=== PATIENT | female | born 1970 | race Caucasian/White ===

== ENCOUNTER 2018-05-18 11:34 | Day surgery (SDC) | payer OTHER ==
[~2018-05-18] VITALS: Ht 160 cm; Wt 79.8 kg
[~2018-05-18 11:34] MED LIST: 0.9 % SODIUM CHLORIDE 20 ML VIAL. IJ ONE; BUPIVACAINE-EPI 0.5%-1:200000 50 ML VIAL. ONE; HYDR-2758 PO; HYDROmorphone 2 MG/ML VIAL IV PRN; IV RINGERS,LACTATED 1000ML 1,000 ML IV SCH; LIDOCAINE 1% PF 2 ML VIAL. ID PRN; MORPHINE SULFATE 2 MG/ML VIAL. IV PRN; NAPR220C4 PO; NORE-83 PO; ONDANSETRON PF 4 MG/2 ML VIAL. IV PRN; PROCHLORPERAZINE 10 MG/2 ML VIAL. IV PRN; RANI150T2 PO; fentaNYL PF VIAL 100 MCG/2 ML VIAL IV PRN
[2018-05-18 12:08] LABS: U PREG PATIENT NEGATIVE (NEG)
[2018-05-18 12:29] LABS: BASO # 0.1 x10^3/uL (0.0-0.2); BASO % 1 % (0-3); EOS # 0.2 x10^3/uL (0.0-0.7); EOS % 4 % (0-3); HEMATOCRIT 37.1 % (36.0-47.0); HEMOGLOBIN 12.9 g/dL (12.0-15.5); LYMPH # 1.5 x10^3/uL (1.0-4.8); LYMPH % 26 % (24-48); MEAN CORPUSCULAR HEMOGLOBIN 31 pg (25-35); MEAN CORPUSCULAR HGB CONC 35 g/dL (31-37); MEAN CORPUSCULAR VOLUME 89 fL (79-100); MONO # 0.5 x10^3/uL (0.0-1.1); MONO % 8 % (0-9); NEUT # 3.5 x10^3uL (1.8-7.7); NEUT % 61 % (31-73); PLATELET COUNT 225 x10^3/uL (140-400); RED BLOOD COUNT 4.15 x10^6/uL (3.50-5.40); RED CELL DISTRIBUTION WIDTH 13.4 % (11.5-14.5); WHITE BLOOD COUNT 5.7 x10^3/uL (4.0-11.0)
[2018-05-18 12:43] LABS: PROTHROMBIN TIME PATIENT 12.9 SEC (11.7-14.0)
[2018-05-18 12:49] LABS: CALCIUM 9.4 mg/dL (8.5-10.1); CREATININE 0.6 mg/dL (0.6-1.0); GFR 107.6; POTASSIUM 4.2 mmol/L (3.5-5.1)
[2018-05-18] MEDS ORDERED: MIDAZOLAM HCL/PF 2 MG/2 ML VIAL. ONE (12:50)
[2018-05-18] MEDS ORDERED: fentaNYL PF VIAL 100 MCG/2 ML VIAL ONE ×4 (12:50→16:31)
[2018-05-18] MEDS ORDERED: LIDOCAINE 2% PF Vial for OR 5 ML VIAL. ONE (12:51)
[2018-05-18] MEDS ORDERED: PROPOFOL 20 ML IV ONE ×2 (12:51→15:33)
[2018-05-18] MEDS ORDERED: DEXAMETHASONE SOD PHOS 20 MG/5 ML VIAL. ONE (12:51)
[2018-05-18] MEDS ORDERED: SEVOFLURANE > 120 MINUTES. IH ONE (12:51)
[2018-05-18] MEDS ORDERED: ONDANSETRON PF 4 MG/2 ML VIAL. ONE ×2 (12:51→13:42)
[2018-05-18] MEDS ORDERED: KETOROLAC 30 MG/ML INJ FOR OR. INJ ONE (12:51)
--- NOTE | 2018-05-18 12:54 | PDOC1 ---
History and Physical Date of Admission Date of Admission DATE: 05/18/18 TIME: 12:45 Identification/Chief Complaint Chief Complaint right proximal humerus fracture History of Present Illness History of Present Illness Ms. Madsen is a pleasant 47 year old right-hand dominant female who presents with a right proximal humerus fracture. Patient was at work when injury occurred. 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 She notes a shooting "twinge" occasionally in the shoulder. Current Medications Current Medications Current Medications Prochlorperazine Edisylate (Compazine) 5 mg PACU PRN PRN IV NAUSEA, MRX1; Start 05/18/18 at 07:00; Stop 05/19/18 at 06:59 Hydromorphone HCl (Dilaudid) 0.5 mg PRN Q10MIN PRN IV SEV PAIN, Second choice; Start 05/18/18 at 07:00; Stop 05/19/18 at 06:59 Lidocaine HCl (Xylocaine-Mpf 1% 2ml Vial) 2 ml PRN 1X PRN ID IV START; Start 05/18/18 at 07:00; Stop 05/19/18 at 06:59 Ringer's Solution 1,000 ml @ 30 mls/hr Q24H IV Last administered on at 12:32; Start 05/18/18 at 07:00; Stop 05/18/18 at 18:59 Morphine Sulfate (Morphine Sulfate) 1 mg PRN Q10MIN PRN IV SEVERE PAIN; Start 05/18/18 at 07:00; Stop 05/19/18 at 06:59 Fentanyl Citrate (Fentanyl 2ml Vial) 50 mcg PRN Q5MIN PRN IV MODERATE TO SEVERE PAIN; Start 05/18/18 at 07:00; Stop 05/19/18 at 06:59 Fentanyl Citrate (Fentanyl 2ml Vial) 25 mcg PRN Q5MIN PRN IV MILD PAIN; Start 05/18/18 at 07:00; Stop 05/19/18 at 06:59 Ondansetron HCl (Zofran) 4 mg PRN Q6HRS PRN IV NAUSEA/VOMITING; Start at 07:00; Stop 05/19/18 at 06:59 Cefazolin Sodium/ Dextrose 50 ml @ 100 mls/hr 1X ONCE IV ; Start 05/18/18 at 06:00; Stop 05/18/18 at 06:29; Status DC Bupivacaine HCl/ Epinephrine Bitart (Marcaine-Epi 0.5%-1:[id number]) 50 ml STK-MED ONCE .ROUTE ; Start 05/18/18 at 06:33; Stop 05/18/18 at 07:33; Status DC Sodium Chloride (SODIUM CHLORIDE 20ml) 20 ml STK-MED ONCE IJ ; Start 05/18/18 at 06:33; Stop 05/18/18 at 07:34; Status DC Cefazolin Sodium/ Dextrose 50 ml @ As Directed STK-MED ONCE IV ; Start at 12:35; Stop 05/18/18 at 12:36; Status DC Active Scripts Active Reported Aleve (Naproxen Sodium) 220 Mg Capsule 220 Mg PO BID Hydrocodone-Apap 5-325 (Hydrocodone Bit/Acetaminophen) 1 Each Tablet 1 Tab PO PRN Q6HRS PRN Loestrin (Norethindrone A-E Estradiol) 1 Each Tablet 1 Each PO DAILY Ranitidine Hcl 150 Mg Tablet 150 Mg PO HS Allergies Allergies: Coded Allergies: Sulfa (Sulfonamide Antibiotics) (Verified Allergy, Severe, BROWN- CISCO SYNDROME, 05/16/18) acetaminophen (Verified Allergy, Intermediate, EXTREME ITCHING, 05/16/18) propoxyphene (Verified Allergy, Intermediate, EXTREME ITCHING, 05/16/18) ROS Review of System The 11 system questionnaire was reviewed and pertinent positives are noted above in the HPI. All other systems were reviewed and found to be negative. Please refer to the signed and dated copy scanned into the chart for more details. Physical Exam General: Alert, Oriented X3 HEENT: Atraumatic, EOMI, Mucous membr. moist/pink Lungs: Other (non labored respirations) Heart: RRR Extremities: Other (Sensations intact axillary nerve distribution. Ecchymosis over arm to elbow. Full supination) Vitals Vitals Vital Signs Date Time Temp Pulse Resp B/P (MAP) Pulse Ox O2 Delivery O2 Flow Rate FiO2 05/18/18 12:27 97.3 60 16 142/74 99 Room Air 97.3 Labs Labs Laboratory Tests Test 05/18/18 11:30 05/18/18 12:10 Urine Test Negative (NEG) White Blood Count 5.7 x10^3/uL (4.0-11.0) Red Blood Count 4.15 x10^6/uL (3.50-5.40) Hemoglobin 12.9 g/dL (12.0-15.5) Hematocrit 37.1 % (36.0-47.0) Mean Corpuscular Volume 89 fL (79-100) Mean Corpuscular Hemoglobin 31 pg (25-35) Mean Corpuscular Hemoglobin Concent 35 g/dL (31-37) Red Cell Distribution Width 13.4 % (11.5-14.5) Platelet Count 225 x10^3/uL (140-400) Neutrophils (%) (Auto) 61 % (31-73) Lymphocytes (%) (Auto) 26 % (24-48) Monocytes (%) (Auto) 8 % (0-9) Eosinophils (%) (Auto) 4 % (0-3) Basophils (%) (Auto) 1 % (0-3) Neutrophils # (Auto) 3.5 x10^3uL (1.8-7.7) Lymphocytes # (Auto) 1.5 x10^3/uL (1.0-4.8) Monocytes # (Auto) 0.5 x10^3/uL (0.0-1.1) Eosinophils # (Auto) 0.2 x10^3/uL (0.0-0.7) Basophils # (Auto) 0.1 x10^3/uL (0.0-0.2) Laboratory Tests Test 05/18/18 11:30 05/18/18 12:10 Urine Test Negative (NEG) White Blood Count 5.7 x10^3/uL (4.0-11.0) Red Blood Count 4.15 x10^6/uL (3.50-5.40) Hemoglobin 12.9 g/dL (12.0-15.5) Hematocrit 37.1 % (36.0-47.0) Mean Corpuscular Volume 89 fL (79-100) Mean Corpuscular Hemoglobin 31 pg (25-35) Mean Corpuscular Hemoglobin Concent 35 g/dL (31-37) Red Cell Distribution Width 13.4 % (11.5-14.5) Platelet Count 225 x10^3/uL (140-400) Neutrophils (%) (Auto) 61 % (31-73) Lymphocytes (%) (Auto) 26 % (24-48) Monocytes (%) (Auto) 8 % (0-9) Eosinophils (%) (Auto) 4 % (0-3) Basophils (%) (Auto) 1 % (0-3) Neutrophils # (Auto) 3.5 x10^3uL (1.8-7.7) Lymphocytes # (Auto) 1.5 x10^3/uL (1.0-4.8) Monocytes # (Auto) 0.5 x10^3/uL (0.0-1.1) Eosinophils # (Auto) 0.2 x10^3/uL (0.0-0.7) Basophils # (Auto) 0.1 x10^3/uL (0.0-0.2) VTE Prophylaxis Ordered VTE Prophylaxis Devices: Yes VTE Pharmacological Prophylaxi: No Assessment/Plan Assessment/Plan Patient is a 47 year old right-hand dominant female who sustained a right proximal humerus fracture after a fall at work. Plan for surgical fixation of right proximal humerus fracture this afternoon. We discussed non-operative versus operative treatment of the patient's right proximal humerus fracture. The risks of surgery including the risk of undergoing anesthesia, bleeding, infection, nerve damage, malunion, and nonunion , blood clots were discussed at length. The benefits of surgery including pain relief and functional improvement of the right arm were also discussed. We also discussed the postoperative course of immobilization, weight restrictions, and physical therapy required after surgery. After a thorough discussion of the risks and benefits of an open reduction internal fixation of her right proximal humerus fracture the patient elected to proceed with surgery. The patient exhibited understanding of the risks and benefits of surgery, and all questions were answered. A written consent was obtained. Plan for patient to be discharged per anesthesia after surgery TANISHA FRANCIS May 18, 2018 12:54
[2018-05-18] MEDS ORDERED: MORPHINE SULFATE 5 MG, KETOROLAC 30MG VIAL 30 MG, ROPIVacaine 0.5% PF 60 ML, EPINEPHrin... INT ART ONE ×5 (13:00)
[2018-05-18] MEDS ORDERED: VANCOMYCIN 1 GM VIAL. ONE (14:09)
[2018-05-18] MEDS ORDERED: ROCURONIUM 50 MG/5 ML VIAL. ONE (14:28)
[2018-05-18] MEDS ORDERED: NEOSTIGMINE METHYLSULFATE 5 MG/5 ML SYRINGE. ONE (14:30)
--- NOTE | 2018-05-18 15:35 | PDOC ---
BRIEF OPERATIVE NOTE Date: May 18, 2018 Pre-Op Diagnosis right proximal humerus fracture Post-Op Diagnosis same Procedure Performed orif right proximal humerus fracture Surgeon Nils Murphy MD Director Validation Dea Moseley PA-C Anesthesia Type: General Blood Loss 100 cc Findings comminuted fracture of the proximal humerus Complications none NILS MURPHY MD May 18, 2018 15:35
--- NOTE | 2018-05-18 15:38 | PDOC4 ---
Operative Note Operative Note DATE OF OPERATION: 05/18/2018 PREOPERATIVE DIAGNOSIS: Right PROXIMAL HUMERUS FRACTURE, S42.21A POSTOPERATIVE DIAGNOSIS: Right PROXIMAL HUMERUS FRACTURE, S42.21A OPERATION PERFORMED: 1. OPEN REDUCTION INTERNAL FIXATION OF Right PROXIMAL HUMERUS FRACTURE, CPT 48964 2. BICEPS TENDON TRANSFER, CPT 87588 SURGEON: Loree Murphy MD DRIVER MESSENGER: Dea VAZQUEZ ANESTHESIA: General ESTIMATED BLOOD LOSS: 100 CC IMPLANTS: Hakan PROXIMAL HUMERUS LOCKING PLATE SURGICAL INDICATION: The patient is a 47 year- old right-hand dominant female with a three part right proximal humerus fracture after a fall from standing height. The risks and benefits of non-operative versus operative treatment were discussed with the patient. The risks of surgery including the risk of undergoing anesthesia, bleeding, infection, nerve damage, malunion, and nonunion , blood clots were discussed at length. We also discussed hardware failure and the need for revision to a reverse total shoulder. The benefits of surgery including pain relief and functional improvement of the arm were also discussed. We also discussed the postoperative course of immobilization, weight restrictions, and physical therapy required after surgery. After a thorough discussion of the risks and benefits of an open reduction internal fixation of the left proximal humerus fracture the patient elected to proceed with surgery. The patient exhibited understanding of the risks and benefits of surgery, and all questions were answered. DESCRIPTION OF PROCEDURE: The patient was identified, marked, and the procedure was reconfirmed by myself prior to taking them to the operating room. IV antibiotics were given preoperatively. The patient was positioned appropriately in the beach chair position and underwent adequate general anesthesia. The operative upper extremity was prepped and draped in a standard surgical fashion. A deltopectoral incision was made down through skin and subcutaneous tissue. The cephalic vein was identified and mobilized laterally with the deltoid and protected throughout the case. Subdeltoid adhesions were released, and fracture hematoma was encountered. The biceps tendon was identified between the lesser and greater tuberosity fragments. It was traced into the rotator interval, which was thoroughly released to the base of the coracoid. The biceps tendon was then released and tagged. The superior expansion of the pectoralis major was taken down. #2 fiberwire sutures were placed into the lesser and greater tuberosity to gain control of the fragments. Additional #2 Fiberwire sutures were placed in the tendons. The greater tuberosity was very comminuted and posteriorly displaced. The tuberosities were then mobilized and the shaft was distalized to reduce the fracture. The plate was applied to the lateral aspect of the humeral shaft while the head was held in place. Two k-wires were used to reduce the plate to the fracture and maintain the height, length, and rotation of the humeral head and shaft. Plate position was confirmed with c-arm and it was placed 15 mm distal to the rotator cuff insertion to avoid impingement. The plate was applied to the distal humerus with a 3.5 mm cortical screw in the oblong hole. Then the calcar and head locking screws were placed. All drilling was done and screws were placed under fluoroscopy to ensure that there was no penetration of the joint surface. The #2 fiberwire sutures were placed through the plate after all the screws were placed, and they were tied over the plate for additional head/ tuberosity fixation. This completes the ORIF of the left proximal humerus fracture, CPT 36639. The fracture pieces moved as a unit, and fluoroscopy confirmed that there was no intra- articular placement of the screws. The biceps tendon was tenodesed to the superior expansion of the pectoralis major, which was also repaired with 0 ethibond. This completes the biceps tenodesis, CPT 45937. The operative site was copiously irrigated with pulse lavage. 1 gram of vancomycin powder was placed into the incsion. The deltopectoral interval was reapproximated with 0 ethibond sutures. The wound was irrigated again, and the superficial layer was closed with 3-0 monocryl and jasmine and a sterile dressing. Sterile dressings and sling were applied. DISPOSITION: The patient was transferred to the bed and taken to the recovery room awake, alert, and in stable condition. COMPLICATIONS: None POST-OPERATIVE PLAN: SLING AND NWB TO HER LUE. FOLLOW-UP IN 1-2 WEEKs for an incision check and xrays. Ok for hand, wrist, and elbow exercises. LOREE MURPHY MD May 18, 2018 15:38
[2018-05-18] MEDS: fentaNYL PF VIAL 100 MCG/2 ML VIAL IV PRN ×3 (16:01→16:33)
[2018-05-18] MEDS ORDERED: PROCHLORPERAZINE 10 MG/2 ML VIAL. ONE (16:06)
[2018-05-18] MEDS ORDERED: HYDROcodone/APAP 5/325MG 1 TAB TABLET PO ONE (17:00)
[2018-05-18 17:30] VITALS: BP 107/62
== END 2018-05-18 19:23 | disposition home or self-care (01) ==
LOC: SURG 11:34
PROVIDERS: ATTEND Orthopaedic Surgery
DX: S42.251A Displaced fracture of greater tuberosity of right humerus, initial encounter for closed fracture (principal); W18.39XA Other fall on same level, initial encounter; Y93.89 Activity, other specified; Y92.89 Other specified places as the place of occurrence of the external cause; Y99.8 Other external cause status; K21.9 Gastro-esophageal reflux disease without esophagitis; F17.210 Nicotine dependence, cigarettes, uncomplicated; Z72.89 Other problems related to lifestyle; Z79.899 Other long term (current) drug therapy; Z98.890 Other specified postprocedural states
CPT/HCPCS: 23615; 36415; 76000; 80048; 81025; 82306; 85025; 85610; 85730; 86850; 86900; 86901; 87070; 87641; A7015; J0171; J0690; J0780; J1100; J1885; J2001; J2250; J2270; J2405; J2704; J2710; J2795; J3010; J3370; J7120; C1713